=== PATIENT | female | born 1990 | race Caucasian/White ===

== ENCOUNTER → 2017-02-13 | Outpatient (CLI) | payer BC, OTHER ==
[2014-05-03 08:46] VITALS: BP 114/76
--- NOTE | 2017-02-13 10:10 | US ---
HISTORY: Abdominal bloating, constipation Study: Right upper quadrant ultrasound Comparison: None Findings: The liver is normal in size and configuration and without cysts, mass, or biliary ductal dilatation. No gallstones are present within the gallbladder. Gallbladder wall thickness was normal. The common duct measured 4.1 millimeters. The right kidney measured 8.5 x 5.6 x 5.7 centimeters. No solid mass es, hydronephrosis, stones, or perinephric fluid collections were identified. The pancreas was obscu red by overlying bowel gas. IMPRESSION: No significant abnormality identified Reported By:
== END ==
LOC: RAD 09:18
PROVIDERS: ATTEND Nurse Practitioner Family
DX: R14.0 Abdominal distension (gaseous) (principal); K59.04 Chronic idiopathic constipation; E61.1 Iron deficiency
CPT/HCPCS: 76705

== ENCOUNTER → 2017-02-14 | Outpatient (CLI) | payer BC, OTHER ==
[2014-05-03 08:46] VITALS: BP 114/76
--- NOTE | 2017-02-14 11:30 | NM ---
HISTORY: Abdominal pain Study: Nuclear medicine HIDA scan with ejection fraction Comparison: None Technique: Multiple scintigraphic images of the abdomen were obtained the intravenous administration of 5.1 mCi of technetium labeled Choletec. Following distention of the gallbladder with radiotracer the patient received a fatty meal. An [place] mated gallbladder ejection fraction was calculated based on the physiologic response of this infusio n. Findings: Homogeneous uptake of radiotracer is seen throughout the liver. This intrabiliary ductal system is observed normally. The common hepatic and common bile duct grossly appear unremarkable with normal biliary-bowel transit. The gallbladder is observed to fill normally. After the fatty meal a gallbladder ejection fraction of 16.7% (normal > 35%) is observed. IMPRESSION: 1. Normal hepatobiliary imaging scan. 2. Abnormal gallbladder ejection fraction 16.7% Reported By:
== END ==
LOC: RAD 09:03
PROVIDERS: ATTEND Internal Medicine
DX: R14.0 Abdominal distension (gaseous) (principal); K59.04 Chronic idiopathic constipation; E61.1 Iron deficiency
CPT/HCPCS: 78227